=== PATIENT | female | born 1995 | race American Indian/Alaskan Native ===

== ENCOUNTER 2019-03-30 07:02 | Observation (INO) | payer MEDICAID ==
[2019-03-30] MEDS ORDERED: METOCLOPRAMIDE 10 MG/2 ML INJ IV ONE (07:42)
[2019-03-30] MEDS ORDERED: SODIUM CHLORIDE 0.9% 1000 ML 1,000 ML IV ONE ×3 (07:43→14:20)
--- NOTE | 2019-03-30 07:47 | Emergency Department Report ---
HPI - General Chief Complaint: Nausea/Vomiting/Diarrhea Time Seen by Provider: 03/30/19 07:24 - HPI HPI: 23-year-old Thais female presents to the emergency department with a complaint of nausea and vomiting that has been going on since early this morning. It has gotten to the point where she is "throwing up blood." She says that she has a past medical history of gastritis and hypertension. When asked if she is possibly , the patient says it is a possibility and she is unaware of her last menstrual cycle. She has not taken anything for her symptoms prior to arrival today. No recent travel or sick contacts at home. She has some abdominal discomfort but she believes it is secondary to the copious vomiting. The patient does not appear to have been at this emergency department previously. ED Past Medical Hx - Past Medical History Previous Medical History?: Yes Additional medical history: Refuse to answer, Vaginal delivery - Surgical History Past Surgical History?: Yes Additional Surgical History: Ports @ right chest - Social History Smoking Status: Never Smoker - Medications Home Medications: Home Medications Medication Instructions Recorded Confirmed Last Taken Type Famotidine [Pepcid] 20 mg PO BID #10 tablet 03/30/19 Unknown Rx Metoclopramide [Reglan] 10 mg PO TID PRN #20 tab 03/30/19 Unknown Rx Vit-Fe Fumar-FA [ 1 tab PO QDAY #30 tablet 03/30/19 Unknown Rx Vitamin] ED Review of Systems ROS: Stated complaint: EMESIS Other details as noted in HPI Comment: All other systems reviewed and negative Constitutional: denies: chills, fever Eyes: denies: eye pain, vision change ENT: denies: ear pain, throat pain Respiratory: denies: cough, shortness of breath Cardiovascular: denies: chest pain, palpitations Gastrointestinal: abdominal pain, nausea, vomiting, hematemesis Genitourinary: denies: dysuria, discharge Musculoskeletal: denies: back pain, arthralgia Skin: denies: rash, lesions Neurological: denies: headache, weakness Physical Exam - Physical Exam Vital Signs: Vital Signs 03/30/19 07:13 Temperature 97.7 F Pulse Rate 121 H Respiratory 24 Rate Blood Pressure 121/68 O2 Sat by Pulse 97 Oximetry Physical Exam: GENERAL: Patient is ill-appearing. Patient is actively vomiting and there is blood-tinged emesis. HENT: Normocephalic. Atraumatic. Patient has moist mucous membranes. EYES: Extraocular motions are intact. Pupils equal reactive to light bilaterally. NECK: Supple. Trachea is midline. CHEST/LUNGS: Clear to auscultation. There is no respiratory distress noted. HEART/CARDIOVASCULAR: Regular. There is mild to moderate tachycardia. There is no murmur. ABDOMEN: Abdomen is soft. There is some epigastric tenderness to palpation. Patient has normal bowel sounds. There is no abdominal distention. SKIN: Skin is warm and dry. NEURO: The patient is awake, alert, and oriented. The patient is cooperative. The patient has no focal neurologic deficits. Normal speech. MUSCULOSKELETAL: There is no tenderness or deformity. There is no evidence of acute injury. ED Course Vital Signs 03/30/19 07:13 Temperature 97.7 F Pulse Rate 121 H Respiratory 24 Rate Blood Pressure 121/68 O2 Sat by Pulse 97 Oximetry ED Medical Decision Making - Lab Data Result diagrams: 03/30/19 07:28 03/30/19 07:28 - Radiology Data Radiology results: report reviewed ultrasound shows a live intrauterine at 24 weeks and 3 days without any other abnormalities. - Medical Decision Making patient presents with nausea and vomiting that has been going on since late last night. His got to the point where the patient has some blood-tinged emesis. She also has a history of gastritis. She is unable to tell me the last time she had a menstrual cycle and says it is possible she could be but denies knowing that she is/was . Serum did come back positive and the quantitative came back at about 11,000. ultrasound was done that shows a live intrauterine at 24 weeks and 3 days. Patient's labs have been mostly unremarkable except for signs of dehydration with 80 ketones in the urine. This is obtained even after the patient had 1.5 L of normal saline. Patient was given Reglan and then Zofran. We have attempted an oral challenge but the patient did continue to have nausea and vomiting. The patient has a chest port in place and says it is because she is "high risk" appears to have a history of previous hyperemesis gravidarum affecting her last . The patient says that she has an IT HELP DESK ANALYST through [facility] but she has not seen them in many months. I spoke with the IT HELP DESK ANALYST on-call, Dr. Doni Hill, who has accepted the patient to his service. - Differential Diagnosis hyperemesis gravidarum, gastritis, miscarriage, food poisoning Critical Care Time: No Critical care attestation.: If time is entered above; I have spent that time in minutes in the direct care of this critically ill patient, excluding procedure time. ED Disposition Clinical Impression: Hyperemesis gravidarum Qualifiers: Weeks of gestation: 24 weeks Qualified Code(s): Z3A.24 - 24 weeks gestation of Nausea & vomiting Qualifiers: Vomiting Intractability: intractable Gastritis Qualifiers: Gastritis type: unspecified gastritis Chronicity: unspecified Gastritis bleeding: with bleeding Qualified Code(s): K29.71 - Gastritis, unspecified, with bleeding Disposition: TO HOME OR SELFCARE Is pt being admited?: No Condition: Stable Instructions: (ED), Gastritis (ED), Dehydration (ED), Acute Nausea and Vomiting (ED) Additional Instructions: Please follow-up with an IT HELP DESK ANALYST regarding your and I am giving you multiple local IT HELP DESK ANALYST referrals. I'm starting you on vitamins. I am giving you a prescription for Reglan for your nausea and vomiting. I am giving you a prescription for Pepcid for your acid reflux and history of gastritis. I am also giving you a referral for a local radiation physicist, Dr. Jose Juan Hill. Increase your fluid intake. Return to the emergency Department with any return or worsening of your symptoms, or with any acute distress. Prescriptions: Famotidine [Pepcid] 20 mg PO BID #10 tablet Vit-Fe Fumar-FA [ Vitamin] 1 tab PO QDAY #30 tablet Metoclopramide [Reglan] 10 mg PO TID PRN #20 tab PRN Reason: Nausea Referrals: FARNAZ HILL MD [Staff Physician] - 2-3 Days [facility] [Provider Group] - 2-3 Days [facility] [Provider Group] - 2-3 Days [facility] [Provider Group] - 2-3 Days Time of Disposition: 12:23
[2019-03-30 08:00] LABS: Basophils % (Auto) 0.1 % (0.0-1.8); Eosinophils % (Auto) 0.1 % (0.0-4.3); Hematocrit 37.7 % (30.3-42.9); Hemoglobin 12.6 gm/dl (10.1-14.3); Lymphocytes # (Auto) 2.1 K/mm3 (1.2-5.4); Lymphocytes % (Auto) 15.9 % (13.4-35.0); Mean Corpuscular HGB Conc 34 % (30-34); Mean Corpuscular Volume 87 fl (79-97); Monocytes # (Auto) 0.6 K/mm3 (0.0-0.8); Monocytes % (Auto) 4.6 % (0.0-7.3); Platelet Count 328 K/mm3 (140-440); Red Blood Count 4.32 M/mm3 (3.65-5.03); Red Cell Distribution Width 13.6 % (13.2-15.2)
[2019-03-30 08:14] LABS: Alanine Aminotransferase 6 units/L (7-56); BUN/Creatinine Ratio 13; Blood Urea Nitrogen 5 mg/dL (7-17); Calcium 9.3 mg/dL (8.4-10.2); Hemolysis Index 3
[2019-03-30] MEDS ORDERED: FAMOTIDINE 20 MG/2 ML INJ IV ONE (08:20)
[2019-03-30 08:35] LABS: INR 0.99 (0.87-1.13)
[2019-03-30 08:36] LABS: Partial Thromboplastin Time 27.9 Sec. (24.2-36.6)
--- NOTE | 2019-03-30 09:39 | Ultrasound Report ---
ULTRASOUND OBSTETRIC INDICATION / CLINICAL INFORMATION: Abd pain, . Clinical gestational age 26 weeks 0 days TECHNIQUE: Transabdominal. COMPARISON: None available. FINDINGS: There is a single intrauterine . Biparietal Diameter = 5.89 cm = 24 weeks, 1 day(s). Head Circumference = 23.0 cm = 25 weeks, 0 day(s). Abdominal Circumference = 19.2 cm = 24 weeks, 0 day(s). Femur Length = 4.48 cm = 24 weeks, 5 day(s). Average Ultrasound Age (AUA) = 24 weeks, 3 day(s). Heart Rate: 147 beats per minute. Estimated Weight in grams (if calculated): 689 Estimated Weight Growth Percentile (if calculated): Position: cephalic. Cervix: closed. Length in cm (if measured): 2.6 Placenta: anterior and free of the os. Amniotic Fluid Volume: Subjectively within normal limits. IMPRESSION: 1. Single, living intrauterine with estimated sonographic age of 24 weeks, 3 day(s). 2. No significant sonographic abnormality. Signer Name: Garth Carpenter MD Signed: 03/30/2019 9:34 AM Workstation Name: [id number]
[2019-03-30 10:59] LABS: Bilirubin,Urine NEG (Negative); Blood,Urine NEG (Negative); Color,Urine Yellow (Yellow); Mucus,Urine 3+ /HPF; Urobilinogen,Urine < 2.0 mg/dL (<2.0)
[2019-03-30] MEDS ORDERED: ONDANSETRON 4 MG/2 ML INJ IV ONE (14:14)
--- NOTE | 2019-03-30 17:57 | Short Stay Summary ---
Short Stay Documentation Date of service: 03/30/19 Narrative H&P: Pt is a 23yo BF presents to the emergency department with a complaint of nausea and vomiting that has been going on since early this morning. It has gotten to the point where she is "throwing up blood." She says that she has a past medical history of gastritis and hypertension. When asked if she is possibly , the patient says it is a possibility and she is unaware of her last menstrual cycle. She has not taken anything for her symptoms prior to arrival today. No recent travel or sick contacts at home. She has some abdominal discomfort but she believes it is secondary to the copious vomiting. The patient does not appear to have been at this emergency department previously. Ob u/s showed an IUP @ 24 3/7 weeks. Her labs have been mostly unremarkable except for signs of dehydration with 80 ketones in the urine, even after 1.5 L of normal saline. She was given Reglan and then Zofran. We have attempted an oral challenge but the patient did continue to have nausea and vomiting. The patient has a chest port in place and says it is because she is "high risk" appears to have a history of previous hyperemesis gravidarum affecting her last . She has an CHEMICAL PACKAGER through [facility] but she has not seen them in many months. She will therefore be admitted for IV hydration and IV antiemetics. - History Principal diagnosis: IUP @ 24 3/7 weeks; Hyperemesis H&P: obtained from office Past Medical History: GERD Past Surgical History: No surgical history Social history: no significant social history, single - Allergies and Medications Current Medications: Allergies No Known Allergies Allergy (Unverified 03/30/19 07:13) Home Medications Medication Instructions Recorded Confirmed Last Taken Type Famotidine [Pepcid] 20 mg PO BID #10 tablet 03/30/19 Unknown Rx Metoclopramide [Reglan] 10 mg PO TID PRN #20 tab 03/30/19 Unknown Rx Vit-Fe Fumar-FA [ 1 tab PO QDAY #30 tablet 03/30/19 Unknown Rx Vitamin] Active Medications Sodium Chloride (Nacl 0.9% 1000 Ml) 1,000 mls @ 250 mls/hr IV ONCE ONE Stop: 03/30/19 18:19 Last Admin: 03/30/19 15:32 Dose: 250 mls/hr Documented by: - Physical exam General appearance: mild distress Integumentary: no rash HEENT: Atraumatic Lungs: Clear to auscultation Breasts: deferred Heart: Regular rate Gastrointestinal: normal Female Genitourinary: deferred Rectal Exam: deferred Extremities: no ischemia, No edema Neurological: Normal gait, Normal speech - Hospital course Hospital course: Her condition improved with IV hydration and IV antiemetics. She is now tolerating a reg diet without nausea or vomiting, and ready to go home. - Disposition Condition at discharge: Good Disposition: [id number] TO HOME OR SELFCARE - Discharge Diagnoses (1) 24 weeks gestation of Status: Acute (2) Gastritis Status: Chronic Qualifiers: Gastritis type: unspecified gastritis Chronicity: unspecified Gastritis bleeding: without bleeding Qualified Code(s): K29.70 - Gastritis, unspecified, without bleeding (3) Hyperemesis gravidarum Status: Resolved Short Stay Discharge Plan Activity: no restrictions Diet: regular Additional Instructions: Please follow-up with an CHEMICAL PACKAGER regarding your and I am giving you multiple local CHEMICAL PACKAGER referrals. I'm starting you on vitamins. I am giving you a prescription for Reglan for your nausea and vomiting. I am giving you a prescription for Pepcid for your acid reflux and history of gastritis. I am also giving you a referral for a local outboard motorboat operator, Dr. Jose Juan Hill. Increase your fluid intake. Return to the emergency Department with any return or worsening of your symptoms, or with any acute distress. Follow up with: [facility] [Provider Group] - 2-3 Days [facility] [Provider Group] - 2-3 Days [facility] [Provider Group] - 2-3 Days FARNAZ HILL MD [Staff Physician] - 2-3 Days Forms: [facility] Discharge Summary Prescriptions: Famotidine [Pepcid] 20 mg PO BID #10 tablet Vit-Fe Fumar-FA [ Vitamin] 1 tab PO QDAY #30 tablet Metoclopramide [Reglan] 10 mg PO TID PRN #20 tab PRN Reason: Nausea Ondansetron [Zofran ODT TAB] 4 mg PO Q6H #14 tab.rapdis
[2019-03-30] MEDS ORDERED: ONDANSETRON 4 MG/2 ML INJ IV PRN (18:04)
[2019-03-30] MEDS: D5W/LACTATED RINGERS 1,000 ML IV SCH ×2 (19:28→21:54)
[2019-03-30] MEDS: METOCLOPRAMIDE 10 MG/2 ML INJ IV SCH (19:45)
[2019-03-30] MEDS: PROMETHAZINE 25 MG RECT SUPP PR SCH (19:50)
[2019-03-30] MEDS: POTASSIUM CHLORIDE 10 MEQ 10 MEQ/100 ML BAG IV PRN (20:43)
[2019-03-31] MEDS: POTASSIUM CHLORIDE 10 MEQ 10 MEQ/100 ML BAG IV PRN ×3 (00:48→02:59)
[2019-03-31] MEDS: PROMETHAZINE 25 MG RECT SUPP PR SCH ×4 (01:02→19:50)
[2019-03-31] MEDS: METOCLOPRAMIDE 10 MG/2 ML INJ IV SCH ×3 (01:02→19:48)
[2019-03-31] MEDS: D5W/LACTATED RINGERS 1,000 ML IV SCH ×2 (04:25→06:55)
--- NOTE | 2019-03-31 11:09 | Progress Note ---
Assessment and Plan - Patient Problems (1) 24 weeks gestation of Onset Date: 03/31/19 Current Visit: Yes Status: Acute Plan to address problem: A: IUP @ 24 4/7 weeks Hyperemesis gravidarum - improved with IV antiemetics Gastritis Hypokalemia - resolved P: Will advance diet as tolerated Anticipate discharge tomorrow. (2) Gastritis Onset Date: 03/31/19 Current Visit: Yes Status: Acute Qualifiers: Gastritis type: unspecified gastritis Chronicity: unspecified Gastritis bleeding: without bleeding Qualified Code(s): K29.70 - Gastritis, unspecified, without bleeding (3) Hyperemesis gravidarum Onset Date: 03/31/19 Current Visit: Yes Status: Acute (4) Hypokalemia due to excessive gastrointestinal loss of potassium Onset Date: 03/31/19 Current Visit: Yes Status: Resolved Subjective - Subjective Date of service: 03/31/19 Principal diagnosis: IUP @ 24 4/7 weeks; Hyperemesis Interval history: Pt is feeling well without complaints. She had clear liquids without nausea or vomiting. Wants to eat. Patient reports: movement normal, no new complaints, no loss of fluid, no vaginal bleeding, no contractions Objective - Vital Signs Vital Signs: Vital Signs - 12hr 03/31/19 03/31/19 03/31/19 00:37 00:38 04:18 Temperature 98.0 F 98.2 F Pulse Rate 76 76 82 Respiratory 16 16 Rate Blood Pressure 122/67 Blood Pressure 122/67 109/61 [Right] 03/31/19 04:19 Temperature Pulse Rate 82 Respiratory Rate Blood Pressure 109/61 Blood Pressure [Right] - Exam Abdomen: Present: normal appearance, soft Uterus: Present: normal FHR: category 1 Uterine Contraction Pattern: Absent - Labs Labs: Abnormal Labs 03/30/19 03/30/19 03/30/19 07:28 07:28 08:31 WBC 13.4 H Seg Neutrophils % 79.3 H Seg Neutrophils # 10.6 H Potassium 3.5 L Carbon Dioxide 17 L BUN 5 L Creatinine 0.4 L Glucose 135 H ALT 6 L Amylase Lipase 62 H HCG, Quant [id number] H Ur Specific [place] 03/30/19 03/30/19 03/30/19 10:35 20:20 23:09 WBC Seg Neutrophils % Seg Neutrophils # Potassium 3.5 L 3.5 L Carbon Dioxide BUN Creatinine Glucose ALT Amylase Lipase HCG, Quant Ur Specific [place] 1.033 H 03/30/19 Unknown WBC Seg Neutrophils % Seg Neutrophils # Potassium Carbon Dioxide BUN Creatinine Glucose ALT Amylase 233 H Lipase HCG, Quant Ur Specific [place] Laboratory Results - last 24 hr 03/30/19 03/30/19 03/30/19 10:35 20:20 23:09 Potassium 3.5 L 3.5 L Amylase Lipase TSH Urine Color Yellow Urine Turbidity Clear Urine pH 7.0 Ur Specific [place] 1.033 H Urine Protein 100 mg/dl Urine Glucose (UA) Neg Urine Ketones 80 Urine Blood Neg Urine Nitrite Neg Urine Urobilinogen < 2.0 Ur Leukocyte Esterase Neg Urine WBC (Auto) 2.0 Urine Mucus 3+ 03/30/19 03/30/19 03/31/19 Unknown Unknown 05:54 Potassium 4.3 D Amylase 233 H Lipase 58 TSH 1.790 Urine Color Urine Turbidity Urine pH Ur Specific [place] Urine Protein Urine Glucose (UA) Urine Ketones Urine Blood Urine Nitrite Urine Urobilinogen Ur Leukocyte Esterase Urine WBC (Auto) Urine Mucus
[2019-03-31] MEDS: ONDANSETRON 4 MG ODT TAB PO SCH ×2 (12:34→20:12)
[2019-03-31] MEDS: PRENATAL VIT27-FE FUMARATE-FOLIC ACID VIT TAB PO SCH (12:38)
[2019-04-01] MEDS: ONDANSETRON 4 MG ODT TAB PO SCH ×3 (00:30→13:20)
[2019-04-01] MEDS: METOCLOPRAMIDE 10 MG/2 ML INJ IV SCH ×4 (00:59→13:19)
[2019-04-01] MEDS: PROMETHAZINE 25 MG RECT SUPP PR SCH ×3 (00:59→13:20)
[2019-04-01] MEDS: PRENATAL VIT27-FE FUMARATE-FOLIC ACID VIT TAB PO SCH (11:00)
[2019-04-01] MEDS: D5W/LACTATED RINGERS 1,000 ML IV SCH (11:31)
[2019-04-01 13:23] VITALS: BP 117/84
== END 2019-04-01 15:30 | disposition home or self-care (01) ==
LOC: ED 07:02 → LD 14:36
PROVIDERS: ADMIT Obstetrics & Gynecology; ATTEND Obstetrics & Gynecology
DX: O21.2 Late vomiting of pregnancy (principal); O26.892 Other specified pregnancy related conditions, second trimester; K29.70 Gastritis, unspecified, without bleeding; E87.6 Hypokalemia; K21.9 Gastro-esophageal reflux disease without esophagitis; Z3A.24 24 weeks gestation of pregnancy
CPT/HCPCS: 36415; 76805; 80053; 81001; 82150; 83690; 84132; 84443; 84702; 84703; 85025; 85610; 85730; 96361; 96365; 96366; 96375; 96376; 99284; G0378; J2405; J2765; J3480; J7030; J7121; Q0162